=== PATIENT | male | born 1960 | race Caucasian/White ===

== ENCOUNTER → 2017-04-18 | Outpatient (CLI) | payer OTHER ==
--- NOTE | 2017-04-18 13:01 | RAD ---
Right lower extremity venous duplex ultrasound 04/18/2017 Indication: [Intermittent right leg swelling, history of DVT.] Comparison study: [None] Discussion: Sonographic evaluation of the deep veins of the right lower extremity was performed. This includes grayscale imaging and color duplex imaging with spectral analysis. No evidence of deep venous thrombosis is seen. Interrogated veins are compressible and demonstrate augmentable blood flow and color Doppler imaging. Impression: No evidence of deep venous thrombosis involving the right lower extremity
== END | disposition home or self-care (01) ==
LOC: US 10:04
PROVIDERS: ATTEND Physician Assistant
DX: I83.893 Varicose veins of bilateral lower extremities with other complications (principal); Z86.718 Personal history of other venous thrombosis and embolism
CPT/HCPCS: 93971

== ENCOUNTER → 2018-06-06 | Outpatient (CLI) | payer OTHER ==
--- NOTE | 2018-06-06 09:02 | RAD ---
Chest radiograph 06/06/2018 12:00 AM INDICATION: Productive cough for one month. Smoker. COMPARISON: Chest radiograph July 13, 2015 TECHNIQUE: Frontal and lateral views of the chest are provided. FINDINGS: The cardiomediastinal silhouette is within normal limits. There are no pleural effusions. There is no pulmonary vascular congestion. There is no pneumothorax. There is a new 17 mm nodular opacity in the left lower lobe. No focal airspace consolidation is identified. There is a stable calcified granuloma in the left upper lobe measuring 5 mm. No significant osseous abnormality is identified. IMPRESSION: New 17 mm nodular opacity in the left lower lobe. This finding may be posterior, overlapping with the suspected T11 vertebral level. Further evaluation with CT chest may be of benefit as primary or metastatic lung malignancy is a differential consideration. Rounded pneumonia and granulomatous disease are considerations in appropriate clinical setting. Electronically signed by: Ann-Marie House MD (06/06/2018 8:58 AM) [id number]
== END | disposition home or self-care (01) ==
LOC: PMG 08:40
PROVIDERS: ATTEND Physician Assistant Medical
DX: J18.8 Other pneumonia, unspecified organism (principal); J84.10 Pulmonary fibrosis, unspecified
CPT/HCPCS: 71046

== ENCOUNTER → 2020-05-21 | Outpatient (CLI) | payer OTHER ==
--- NOTE | 2020-05-21 17:53 | RAD ---
Examination: XR CHEST 2V History: Reason: CHRONIC COUGH, PORT FOR CHEMOTHERPAY FOR COLON CANCER / Spl. Instructions: / Histor y: Comparison/Correlation: 06/06/2018 Findings: Frontal and lateral views of the chest were obtained. Right internal jugular infusion port catheter tip terminates overlying superior vena cava. Calcified granulomas involve the lung king. N o pneumothorax. No infiltrate. Nodules involving the lung king again seen. Increase in size of a ri ght midthoracic level nodule which currently measures 1.4 cm diameter is noted. Right medial basilar 2.7 cm diameter nodule at the diaphragmatic level is new in the interval. Impression: New right medial basilar nodule. Increased size of the left mid lung nodule. Findings are concerning for progression of metastases in this patient with a known history of colon cancer. Electronically signed by: Damien Harrison MD (05/21/2020 5:50 PM) [id number]
== END ==
LOC: DXRAD 14:41
PROVIDERS: ATTEND Internal Medicine Pulmonary Disease
DX: R91.1 Solitary pulmonary nodule (principal); R05 Cough; Z85.038 Personal history of other malignant neoplasm of large intestine
CPT/HCPCS: 71046